=== PATIENT | female | born 1975 | race Two or more races ===

== ENCOUNTER 2023-04-16 14:04 | Emergency (ER) | payer OTHER ==
[~2023-04-16] VITALS: Ht 165.1 cm; Wt 95.3 kg
[2023-04-16] MEDS ORDERED: AMBIEN5 MG PO (14:36)
[2023-04-16] MEDS ORDERED: LEXAPRO5 MG PO (14:36)
== END 2023-04-16 17:57 | disposition home or self-care (01) ==
LOC: ER 14:04
DX: J40 Bronchitis, not specified as acute or chronic (principal); Z20.822 Contact with and (suspected) exposure to COVID-19